=== PATIENT | female | born 1935 | race Caucasian/White ===

== ENCOUNTER 2021-12-13 21:26 | Emergency (ER) | payer OTHER ==
[~2021-12-13] VITALS: Ht 157.5 cm; Wt 57.6 kg
[2021-12-13 22:23] LABS: ABSOLUTE NEUTROPHILS 4.6 thou/uL (1.4-8.2); BASOPHILS 0.7 % (0.0-2.0); EOSINOPHILS 1.1 % (0.0-3.0); HEMATOCRIT 38.3 % (37.0-47.0); HEMOGLOBIN 12.4 gm/dL (12.0-15.0); LYMPHOCYTES 21.5 % (24.0-44.0); MCH 29.3 pg (26.0-34.0); MCHC 32.3 g/dL (28.0-37.0); MCV 90.8 fL (80.0-100.0); MONOCYTES 10.2 % (1.0-8.0); PLATELET COUNT 307 thou/uL (150-400); POLYS 66.5 % (36.0-66.0); RBC 4.22 mil/uL (4.20-5.00); RDW 16.2 % (10.5-14.5)
[2021-12-13 22:29] LABS: CALCIUM 8.7 mg/dL (8.5-10.1); CREATININE 1.1 mg/dL (0.6-1.0); POTASSIUM 4.2 mmol/L (3.5-5.1)
[2021-12-13 22:40] LABS: ALBUMIN 3.4 g/dL (3.4-5.0); TOTAL BILIRUBIN 0.6 mg/dL (0.2-1.0); TOTAL PROTEIN 6.4 g/dL (6.4-8.2)
[2021-12-13] MEDS ORDERED: ARICEPT10 M1 PO (23:19)
[2021-12-13] MEDS ORDERED: RISPERDAL0.5 MG PO (23:20)
[2021-12-13] MEDS ORDERED: MIRTAZAPINE7.5 MG PO (23:20)
[2021-12-13] MEDS ORDERED: COZAAR 25 MG TA25 M1 PO (23:21)
[2021-12-13] MEDS ORDERED: LIPITOR10 MG PO (23:21)
[2021-12-13] MEDS ORDERED: TRIAMTERENE/HCT1 CA1 PO (23:22)
[2021-12-13] MEDS ORDERED: FOSAMAX 70 MG T70 MG PO (23:23)
[2021-12-13] MEDS ORDERED: XANAX2 MG PO (23:23)
[2021-12-13] MEDS ORDERED: SEROQUEL200 MG PO (23:24)
[2021-12-13 23:32] VITALS: BP 153/58
--- NOTE | 2021-12-14 12:59 | EKG ---
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 : 1935 Requested By: Landon Escobedo Order Number: [id number] MD: Orlando Antonio Measurements Intervals [place] Rate: 76 P: 55 CA: 142 QRS: 27 QRSD: 82 T: 142 QT: 477 QTc: 537 Interpretive Statements Sinus rhythm Occasional supraventricular complexes Nonspecific T wave abnormality Compared to ECG 09/15/2002 04:37:55 Atrial premature complex(es) now present Nonspecific T wave abnormality is now present Electronically Signed On 12-14-2021 12:59:39 [employer]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 12/14/21 1259 10 10 Orlando Antonio MD, [facility] /EPI
== END 2021-12-13 23:48 | disposition home or self-care (01) ==
LOC: ER 21:26
PROVIDERS: Emergency Medicine
DX: R06.00 Dyspnea, unspecified (principal); Z20.822 Contact with and (suspected) exposure to COVID-19; Z79.899 Other long term (current) drug therapy; Z79.891 Long term (current) use of opiate analgesic

== ENCOUNTER 2021-12-27 12:33 | Emergency (ER) | payer OTHER ==
[~2021-12-27] VITALS: Ht 162.6 cm; Wt 58.5 kg
[~2021-12-27 12:33] MED LIST: ARICEPT10 M1 PO; COZAAR 25 MG TA25 M1 PO; FOSAMAX 70 MG T70 MG PO; LIPITOR10 MG PO; MIRTAZAPINE7.5 MG PO; RISPERDAL0.5 MG PO; SEROQUEL200 MG PO; TRIAMTERENE/HCT1 CA1 PO; XANAX2 MG PO
[2021-12-27 12:39] VITALS: BP 176/67
[2021-12-27 13:22] LABS: ABSOLUTE NEUTROPHILS 3.9 thou/uL (1.4-8.2); BASOPHILS 0.8 % (0.0-2.0); EOSINOPHILS 1.8 % (0.0-3.0); HEMATOCRIT 37.1 % (37.0-47.0); HEMOGLOBIN 12.2 gm/dL (12.0-15.0); LYMPHOCYTES 16.3 % (24.0-44.0); MCH 29.1 pg (26.0-34.0); MCV 88.3 fL (80.0-100.0); MONOCYTES 7.6 % (1.0-8.0); PLATELET COUNT 349 thou/uL (150-400); POLYS 73.5 % (36.0-66.0); RDW 15.8 % (10.5-14.5); WBC 5.3 thou/uL (4.0-11.0)
[2021-12-27] MEDS ORDERED: OMEPRAZOLE 20 M20 M1 PO (13:26)
[2021-12-27] MEDS ORDERED: SYMBICORT160 MCG/4. INH (13:26)
[2021-12-27] MEDS ORDERED: PROAIR HFA8.5 GM INH (13:26)
[2021-12-27] MEDS ORDERED: NITROGLYCERIN0.4 MG SUBLING (13:26)
[2021-12-27] MEDS ORDERED: LORAZEPAM 0.50.5 MG PO (13:27)
[2021-12-27 13:32] LABS: CALCIUM 8.9 mg/dL (8.5-10.1); CREATININE 0.9 mg/dL (0.6-1.0); POTASSIUM 4.4 mmol/L (3.5-5.1)
[2021-12-27 13:38] LABS: TOTAL BILIRUBIN 0.5 mg/dL (0.2-1.0); TOTAL PROTEIN 6.1 g/dL (6.4-8.2)
--- NOTE | 2021-12-29 08:07 | EKG ---
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 : 1935 Requested By: Landon Escobedo Order Number: [id number] MD: Orlando Antonio Measurements Intervals [place] Rate: 55 P: 72 IA: 138 QRS: 48 QRSD: 93 T: 85 QT: 409 QTc: 392 Interpretive Statements Sinus rhythm Atrial premature complexes Nonspecific T abnormalities Compared to ECG 12/13/2021 22:11:09 T-wave abnormality still present Electronically Signed On 12-29-2021 8:07:29 [employer] by Orlando Antonio [email or web address] <ELECTRONICALLY SIGNED> By: Orlando Antonio MD, [facility] 12/29/21 0807 1245 1245 Orlando Antonio MD, [facility] /EPI
== END 2021-12-27 17:48 | disposition home or self-care (01) ==
LOC: ER 12:33
PROVIDERS: Emergency Medicine
DX: R07.89 Other chest pain (principal); Z20.822 Contact with and (suspected) exposure to COVID-19; Z79.51 Long term (current) use of inhaled steroids; Z79.899 Other long term (current) drug therapy